=== PATIENT | female | born 1970 | race Caucasian/White ===

== ENCOUNTER 2020-11-04 16:26 | Outpatient (REF) | payer OTHER, SELFPAY ==
[2020-11-04 17:11] LABS: MANUAL DIFF FLAG NO
[2020-11-04 17:20] LABS: Basophils Absolute Auto 0.1 X10*3/uL (0.0-0.2); Basophils Percent Auto 0.7 % (0-2); Eosinophils Absolute Auto 0.3 X10*3/uL (0.0-0.4); Eosinophils Percent Auto 3.1 % (0-4); Hematocrit 42.8 % (37-47); Hemoglobin 14.1 g/dl (12.0-16.0); Imm Gran Abs Auto 0.02 X10*3/uL (0.00-0.03); Imm Gran Pct Auto 0.2 % (0.0-0.4); Lymphocytes Percent Auto 33.7 % (20-40); Mean Corpuscular HGB Conc 32.9 g/dl (31.0-35.0); Mean Corpuscular Hemoglobin 30.7 pg (27.0-33.0); Mean Platelet Volume 10.6 fL (9.4-12.3); Monocytes Absolute Auto 0.6 X10*3/uL (0.1-1.2); Monocytes Percent Auto 6.7 % (2-11); Neutrophils Absolute Auto 4.9 X10*3/uL (2.0-8.3); Neutrophils Percent Auto 55.6 % (45-73); Platelet Count 220 X10*3/uL (160-400); Red Cell Distribution Width 12.3 % (11.0-16.0); White Blood Count 8.8 X10*3/uL (4.8-10.8)
[2020-11-04 17:41] LABS: Glucose Urine UA NEG (NEG); Leukocyte Esterase Urine NEG (NEG); Nitrite Urine NEG (NEG); Urine Blood NEG (NEG); Urine Ketones NEG (NEG); Urine Protein NEG (NEG-TRACE)
[2020-11-04 17:42] LABS: Alanine Aminotransferase 17 U/L (0-31); Albumin Level 4.5 g/dL (3.5-5.0); Alkaline Phosphatase 58 U/L (39-117); Anion Gap 12 (12-20); Aspartate Amino Transferase 20 U/L (5-31); Bilirubin Total 0.4 mg/dL (0.0-1.0); Blood Urea Nitrogen 22 mg/dL (9-16); Calcium 9.2 mg/dL (8.4-10.2); Carbon Dioxide 30 mmol/L (22-29); Chloride 106 mmol/L (96-108); Estimated Glomerular Filt Rate 60; Glucose Random 94 mg/dL (60-115); Potassium 4.2 mmol/L (3.3-5.1); Sodium 144 mmol/L (135-145); Total Protein 7.4 g/dL (6.5-8.0)
[2020-11-04 17:45] LABS: Appearance Urine CLEAR; Color Urine YELLOW
[2020-11-04 18:04] LABS: TSH reflex Free T4 0.95 uIU/mL (0.32-4.0)
== END 2020-11-04 16:27 | disposition home or self-care (01) ==
LOC: HO.LAB 16:26
PROVIDERS: PCP Internal Medicine; Visit Provider Internal Medicine
DX: R00.2 Palpitations (principal); R30.0 Dysuria; M79.671 Pain in right foot; Z12.4 Encounter for screening for malignant neoplasm of cervix
CPT/HCPCS: 36415; 80053; 81003; 84443; 85025

== ENCOUNTER 2020-11-14 08:55 | Outpatient (REF) | payer OTHER, SELFPAY ==
[2020-11-15 00:20] LABS: CT PCR NOT DETECTED (Not Detect.); NG PCR NOT DETECTED (Not Detect.)
[2020-11-15 09:07] LABS: BV Int Neg Control Negative (Negative); BV Int Pos Control Positive (Positive)
[2020-11-18 00:36] LABS: HPV mRNA E6/E7 rflx Not Detected (Not Detected)
== END 2020-11-14 08:56 | disposition home or self-care (01) ==
LOC: HO.LAB 08:55
PROVIDERS: PCP Internal Medicine; Visit Provider Obstetrics & Gynecology
DX: Z01.419 Encounter for gynecological examination (general) (routine) without abnormal findings (principal); Z11.3 Encounter for screening for infections with a predominantly sexual mode of transmission; Z11.51 Encounter for screening for human papillomavirus (HPV); N76.0 Acute vaginitis
CPT/HCPCS: 36415; 87480; 87491; 87510; 87591; 87624; 87660; 88142

== ENCOUNTER → 2020-11-22 09:06 | Outpatient (BNVA) | payer OTHER, SELFPAY | PROVIDERS: PCP Internal Medicine; Visit Provider Internal Medicine | DX: R00.2 Palpitations (principal); I34.1 Nonrheumatic mitral (valve) prolapse | CPT/HCPCS: 93005; 99202 ==

== ENCOUNTER → 2020-12-16 13:06 | Outpatient (REF) | payer OTHER, SELFPAY ==
--- NOTE | 2020-12-16 13:10 | CA_ITS ---
Transthoracic Echocardiogram Patient (Last, First, Middle): Toma Street, Gender: Female Date of : 1970 Age: 50 Procedure Date: 12/16/2020 Procedure Type: Transthoracic Echocardiogram Location: OP Height: 154.94 cm Weight: 65.77 kg BSA: 1.65 m2 Heart Rate: bpm BP: 110 / 60 mmHg First Aid Attendant: TRUDI Hernandez MD: Scotty Queen MD Symptoms: R00.2 - Palpitations Study Quality: Good Conclusions: - Normal biventricular function. No significant valvular or pericardial pathology noted. Normal PA pressures. Findings Left Ventricle Normal left ventricular size, thickness, systolic function, and wall motion. The visually estimated ejection fraction is between 55-60%. Diastolic function is normal for age. Right Ventricle Normal right ventricular cavity size and systolic function. Atria Both atria are normal in size. There is no evidence of interatrial shunt by color Doppler. Aortic Valve Normal aortic valve structure and function. There is no aortic valve stenosis. There is no aortic valve regurgitation. Mitral Valve Normal mitral valve structure and function. There is no mitral valve regurgitation. There is no mitral valve stenosis. Pulmonic Valve Normal pulmonic valve structure and function. There is trace pulmonic valve regurgitation. Tricuspid Valve Normal tricuspid valve structure and function. There is trace tricuspid valve regurgitation. Normal right atrial pressure. There is no evidence of pulmonary hypertension. Great Vessels All visible segments of the aorta are normal in size. The visualized portions of the pulmonary artery and branches are normal. Venous The inferior vena cava is normal in size and collapses greater than 50% with inspiration. Pericardium/Pleural There is no evidence of pericardial effusion. Prior Study Comparison No prior study available for comparison. Measurements 2D Linear Measurements IVSd: 0.71 0.6-0.9/0.6-1.0 cm LVIDd: 3.92 3.9-5.3/4.2-5.9 cm LVIDd Index: 2.38 2.4-3.2/2.2-3.1 cm/m2 LVIDs: 2.48 2.0-3.6 cm LVPWd: 0.75 0.7-1.1 cm Ao Root: 2.50 2.1-3.5 cm LA Diam: 2.90 2.7-3.8/3.0-4.0 cm LAIDs Index: 1.76 1.5-2.3 cm/m2 LV Mass: 99.30 67-162/88-224 g LV Mass Index: 60.18 43-95/49-115 g/m2 LVOT Diam: 1.90 3.0+(-)1.3 cm 2D Systolic Function EF 4C: 56.30 >55% EF 2C: 51.10 >55% EF BiP: 55.10 >55% Mitral Valve MV Pk E: 0.90 MV PK A: 0.70 MV Decel Time: 285.00 E/A: 1.30 E'Lateral: 18.40 E'Medial: 13.20 E/E' Med: 6.80 E/E' Lat: 4.90 PHT: 84.00 MVA PHT: 2.62 Decel Mclean: 3.16 Aortic Valve AoV Pk Ronny: 1.64 AoV Mn Ronny: 1.09 AoV VTI: 0.31 AoV Pk Grad: 11.00 Aov Mn Grad: 5.00 BILLIE Cont.VTI: 1.96 LVOT LVOT Pk Ronny: 1.07 LVOT Mn Ronny: 0.68 LVOT VTI: 0.21 LVOT Pk Grad: 5.00 LVOT Mn Grad: 2.00 LVOT Diam: 1.90 LVOT Area: 2.84 Diastolic Function MV Pk E: 0.90 MV Pk A: 0.70 E/A: 1.30 E'Medial: 13.20 E/E' Med: 6.80 E' Laterial: 18.40 E/E' Lat: 4.90 Tricuspid Valve TR Pk Ronny: 2.02 TR Pk Grad: 16.00 RA Press: 3.00 RVSP: 19.00 Great Vessels Aorta Ao Root-2D: 2.50 2.0-3.7 cm Ao Asc: 2.50 2.1-3.4 cm Ao Arch: 2.50 Updated in Other Vendor System with Status of Final Papa Ayala MD electronically signed on 12/19/2020 10:19:09 AM with status of Final
--- NOTE | 2020-12-16 13:20 | ECG_ITS ---
Hook-up date: 2020-12-16 13:57:00 Duration: 47:59:00 Test Indications: PALPITATIONS Medications: [id number] QRS complexes * Ventricular ectopics which represent % of total QRS comp. 57 Supraventricular ectopics which represent <1 % of total QRS comp. * Paced QRS complexs which represent % of total QRS comp. VENTRICULAR ECTOPY * Isolated * Bigeminal Cycles * Couplets * Runs * Beats in Runs * Beats LONGEST at * BPM at :: -- * Beats FASTEST at * BPM at :: -- SUPRAVENTRICULAR ECTOPY 53 Isolated 2 Couplets 0 Runs 0 Beats in Runs * Beats LONGEST at * BPM at :: -- * Beats FASTEST at * BPM at :: -- HEART RATES 53 MIN at 03:05:43 2020-12-17 90 AVG 158 MAX at 16:15:13 2020-12-16 LONGEST RR 1.1600 secs at 06:35:53 2020-12-17 S-T LEVELS Channel 1 - 128 mm at 13:57:00 2020-12-16 - 128 mm at 13:57:00 2020-12-16 Channel 2 - 128 mm at 13:57:00 2020-12-16 - 128 mm at 13:57:00 2020-12-16 Channel 3 - 128 mm at 03:31:61 -- - 128 mm at 03:31:61 Underlying rhythm is sinus; Average ventricular rate 90/min; about 44% of the time, rate>100/min, with maximum rate of 158/min; Rare PACs; Patient did not report any symptoms in the diary Referred By: Scotty Queen Overread By: DEBRA COHEN
== END ==
LOC: HO.CARD 13:06
PROVIDERS: Visit Provider Internal Medicine
DX: R00.2 Palpitations (principal)
CPT/HCPCS: 93225; 93226; 93306

== ENCOUNTER 2022-04-13 22:20 | Emergency (ER) | payer OTHER, SELFPAY ==
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
[2022-04-13 22:29] VITALS: BP 140/74; PULSE 67; O2SAT 100; BMI 27.3
[2022-04-14 01:30] VITALS: BP 130/76; PULSE 74; RESP 16; TEMP 37.1; O2SAT 98
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
[2022-04-14 04:00] VITALS: BP 109/70; PULSE 74; RESP 16; TEMP 36.6; O2SAT 98
[2022-04-14] MEDS: Ibuprofen 600 MG TABLET PO (04:44)
--- NOTE | 2022-04-14 04:52 | PC.NURSE ---
pt a&o, no sob or chest pain. pt denies any loss of vision, pt able to ambulate with a steady gait. Reviewed discharge instructions with pt. pt verbalized understandng.
== END 2022-04-14 04:54 | disposition home or self-care (01) ==
PROVIDERS: Emergency Provider Internal Medicine
DX: S00.11XA Contusion of right eyelid and periocular area, initial encounter (principal); Y04.2XXA Assault by strike against or bumped into by another person, initial encounter; M25.512 Pain in left shoulder; Y93.9 Activity, unspecified; Y92.9 Unspecified place or not applicable; Y99.9 Unspecified external cause status
CPT/HCPCS: 70450; 70486; 99284

== ENCOUNTER 2022-09-04 12:28 | Outpatient (REF) | payer OTHER, SELFPAY ==
[2022-09-04 13:16] LABS: COVID-19 Test Negative (Negative); IDNOW Serial# 6674DD1D
== END 2022-09-04 12:29 | disposition home or self-care (01) ==
LOC: HO.LAB 12:28
PROVIDERS: Visit Provider Internal Medicine
DX: Z20.822 Contact with and (suspected) exposure to COVID-19 (principal)
CPT/HCPCS: 87635; C9803

== ENCOUNTER → 2022-09-24 11:00 | Outpatient (BNVA) | payer OTHER, SELFPAY | PROVIDERS: Visit Provider Obstetrics & Gynecology | DX: Z13.89 Encounter for screening for other disorder (principal) ==

== ENCOUNTER 2022-10-11 10:51 | Outpatient (REF) | payer OTHER, SELFPAY ==
--- NOTE | ~2022-10-11 | MM_ITS ---
EXAMINATION: MM SCREENING DIGITAL BREAST TOMOSYNTHESIS, BILATERAL CLINICAL INFORMATION: Screening. Asymptomatic. Age 52. Prior outside mammograms years ago at unknown facility. No known family history of breast cancer. The lifetime risk of breast cancer based on the Tyrer-Cuzick Model is 7%. COMPARISON: None (current study represents new baseline exam). TECHNIQUE: Digital breast tomosynthesis is performed in both the craniocaudal and mediolateral oblique views along with computer-aided detection (CAD). Synthesized 2D images are generated from the tomosynthesis. FINDINGS: There are scattered areas of fibroglandular density (ACR BI-RADS breast composition Category b). There are no significant masses, abnormal calcifications, or other abnormalities. No architectural abnormality. The axilla and skin contours are unremarkable. MM/MM tomosynthesis screening BI IMPRESSION: No mammographic evidence of malignancy. ASSESSMENT: BI-RADS 1: Negative RECOMMENDATION: Routine annual mammography screening. This patient's information was entered into a reminder system with a target due date for their next mammogram.
== END 2022-10-11 10:52 | disposition home or self-care (01) ==
LOC: HO.MAMMO 10:51
PROVIDERS: Visit Provider Obstetrics & Gynecology
DX: Z12.31 Encounter for screening mammogram for malignant neoplasm of breast (principal)
CPT/HCPCS: 77063; 77067

== ENCOUNTER → 2022-11-27 10:40 | Outpatient (BNVA) | payer OTHER, SELFPAY | PROVIDERS: Visit Provider Internal Medicine | DX: Z12.11 Encounter for screening for malignant neoplasm of colon (principal) | CPT/HCPCS: 99202 ==

== ENCOUNTER 2023-05-29 14:54 | Outpatient (AMB) | payer OTHER, SELFPAY ==
--- NOTE | 2023-05-29 14:59 | MHC.OFFVIS ---
Intake Vital Signs 05/29/23 15:16 Height 5 ft 1 in Weight 144 lb 4 oz BMI 27.3 BP 102/62 Blood Pressure Location Rt brachial Position Sitting Intake Visit Reasons: Vaginal Discharge Allergies Penicillins [PENICILLINS] Allergy (Mild, Verified 05/29/23 15:16) rash Medication List - Last Reconciled 05/29/23 by Nanette Wright CNM mecobalamin (vitamin B12) (B12 Active) 1,000 mcg PO DAILY peg 3350-electrolytes 236-22.74-6.74 -5.86 gram (Golytely) 240 mL PO Q10M HPI Vaginal Discharge HPI Details Patient is here because she has had an discharge that is got an unusual odor for her it is not fishy but it is not normal for her. She also reports though that was not the focus of the visit that sometimes she feels she has to urinate but then she does not fully empty and still has to go. She does Kegel exercises. She is sexually active and is open to STI testing. She had her annual exam last August and her Pap was normal in 2020 and she had a mammogram last September. She is going to be rescheduling her colonoscopy because she can not do the date that was scheduled for. [facility] Medical History (Updated 05/29/23 @ 15:57 by Nanette Wright CNM) Overweight (BMI 25.0-29.9) Right foot pain Cervical cancer screening Amenorrhea Dysuria Palpitations Surgical History Hx of tubal ligation S/P foot surgery, right Family History Father HTN (hypertension) Diabetes Mother HTN (hypertension) Diabetes Social History Alcohol intake: current Alcohol intake frequency: holidays/special occasions only Patient Tobacco Use Status: Never used Tobacco Female Reproductive History Menstrual Age of Menarche: 12 Physical Exam Vital Signs: Last Vital Signs BP 102/62 05/29/23 15:16 BMI result Body Mass Index 27.3 Other: Cervix is somewhat patulous firm there is a creamy slightly bubbly discharge. Patient states that she had a cerclage but she went into pre term labor at 8 months anyway and her cervix got ripped because of the pre term labor with the cerclage and she also had a with her 1st child. External Female Exam: normal external appearance Speculum Exam - Vagina: normal appearance of the vagina and normal vaginal discharge Speculum Exam - Cervix: normal appearance of the cervix Bimanual exam- vagina & uterus: normal bimanual exam, uterine size normal, consistency normal, uterine mobility normal, uterine shape normal and non-tender Bimanual Exam- Adnexa, other: normal adnexae, no masses and No adnexal tenderness Results Reviewed Results Reviewed: Name: Toma Street Age/Sex: 50/F Attending: Jesus Quiroz MD : 1970 Submitted by: Jesus Quiroz MD Copies to: Scotty Queen MD MR #: [id number] Status: DEP REF Collected: 11/14/20 Location: .LAB Received: 11/16/20 Interpretation Satisfactory for evaluation. Negative for intraepithelial lesion or malignancy. HPV mRNA E6/E7: NOT DETECTED This assay detects E6/E7 viral messenger RNA (mRNA) from 14 high-risk HPV types (16, 18, 31, 33, 35, 39, 45, 51, 52, 56, 58, 59, 66, 68) HPV testing performed by [facility], [place], [place]. See reference laboratory portion of the EMR for entire report. Clinical Information LMP: Unknown Date Previous PAP test: Unknown Date/Findings Material Received ThinPrep Cervical Copies To Scotty Queen MD [address] [facility] [address] [place] [address] Jesus Quiroz MD [address] [place] [address] [address] Electronically Signed By: Yajaira Kothariey 11/21/20 1401 The Pap Test is a screening procedure with the inherent possibility of both false negative and false positive results. Results should be interpreted in the context of historic and current clinical findings. Reliability of the Pap Test is enhanced by performing the test on a regular repetitive basis. Patient: Toma Street Ag [facility] [address] [place] [address] [place] [address] Mammography Report Signed Patient: Toma Street MR#: [id number] : 1970 Acct:[id number] Age/Sex: 52 / F ADM Date: 10/11/22 Loc: HO.MAMMO Attending Dr: Jesus Quiroz MD Ordering Physician: Jesus Quiroz MD Results: 1Negative Date of Service: 10/11/22 Follow Up: 1 Year From Original Mammogram Procedure(s): MM tomosynthesis screening BI Accession Number(s): [id number] cc: Jesus Quiroz MD~ EXAMINATION: MM SCREENING DIGITAL BREAST TOMOSYNTHESIS, BILATERAL CLINICAL INFORMATION: Screening. Asymptomatic. Age 52. Prior outside mammograms years ago at unknown facility. No known family history of breast cancer. The lifetime risk of breast cancer based on the Tyrer-Cuzick Model is 7%. COMPARISON: None (current study represents new baseline exam). TECHNIQUE: Digital breast tomosynthesis is performed in both the craniocaudal and mediolateral oblique views along with computer-aided detection (CAD). Synthesized 2D images are generated from the tomosynthesis. FINDINGS: There are scattered areas of fibroglandular density (ACR BI-RADS breast composition Category b). There are no significant masses, abnormal calcifications, or other abnormalities. No architectural abnormality. The axilla and skin contours are unremarkable. MM/MM tomosynthesis screening BI IMPRESSION: No mammographic evidence of malignancy. ASSESSMENT: BI-RADS 1: Negative RECOMMENDATION: Routine annual mammography screening. This patient's information was entered into a reminder system with a target due date for their next mammogram. Dictated By: Kwesi Milligan MD Signed By: <Electronically signed by Kwesi Milligan MD in OV> 10/12/22 1443 DD/ 1120 TD/TT: Director Of Online Merchandising: LINDA Assessment & Plan Assessment & Plan (1) Problematic vaginal discharge: Code(s): N89.8 - Other specified noninflammatory disorders of vagina Plan Testing was done for gonorrhea chlamydia trichomoniasis Gardnerella and Cierra it does not appear to be Cierra will wait to see if anything else shows positive she may call tomorrow towards the end of the day if she is very curious otherwise by the next day. She is not sure if she was on the portal still as she was here and then moved away and now is back. 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 I reviewed Kegel's with her and challenge of incomplete emptying she has very very good tone with her Kegel exercise. She will be rescheduling her colonoscopy to a date that is better for her. Otherwise we will see her p.r.n. or for her annual. I offered STI blood work and I am ordering it that she can get done at her convenience. Orders: Orders Bacterial Vaginosis Panel Today Z01.419 - Encounter for gynecological examination (general) (routine) without abnormal findings HIV Ab/Ag Today N89.8 - Other specified noninflammatory disorders of vagina CT NG by PCR Today Z01.419 - Encounter for gynecological examination (general) (routine) without abnormal findings Hepatitis B Surface Antigen Today N89.8 - Other specified noninflammatory disorders of vagina Hepatitis C Antibody Today N89.8 - Other specified noninflammatory disorders of vagina Syphilis Screen Today N89.8 - Other specified noninflammatory disorders of vagina Coding Level of Care Code Est Pt Level 3 (24955) Diagnoses Problematic vaginal discharge N89.8
[2023-05-29 15:16] VITALS: BP 102/62; BMI 27.3
== END 2023-05-29 15:56 | disposition home or self-care (01) ==
PROVIDERS: Visit Provider Advanced Practice Midwife
DX: N89.8 Other specified noninflammatory disorders of vagina (principal)
CPT/HCPCS: 99213

== ENCOUNTER 2023-05-29 14:54 | Outpatient (REF) | payer OTHER, SELFPAY | END 2023-05-29 14:55 | disposition home or self-care (01) | LOC: HO.LNP 14:54 | PROVIDERS: Visit Provider Advanced Practice Midwife | DX: N89.8 Other specified noninflammatory disorders of vagina (principal) | CPT/HCPCS: 99212 ==

== ENCOUNTER 2023-05-29 16:01 | Outpatient (REF) | payer OTHER, SELFPAY ==
[2023-05-30 03:20] LABS: CT PCR NOT DETECTED (Not Detect.); NG PCR NOT DETECTED (Not Detect.)
[2023-05-30 08:35] LABS: Syphilis Screen Nonreactive (Nonreactive)
[2023-05-30 08:37] LABS: HBsAGNum1 0.31 S/CO (0.00-0.99); HIV AB/AG Nonreactive (Nonreactive); HIV Num 1 0.05 S/CO (0.00-0.99); Hepatitis B Surface Antigen Negative (Negative); ~HepC Num1 0.08 S/CO (0.00-0.79); ~Hepatitis C Antibody Nonreactive (Nonreactive)
== END 2023-05-29 16:02 | disposition home or self-care (01) ==
LOC: HO.LAB 16:01
PROVIDERS: Visit Provider Advanced Practice Midwife
DX: Z01.419 Encounter for gynecological examination (general) (routine) without abnormal findings (principal); N89.8 Other specified noninflammatory disorders of vagina
CPT/HCPCS: 0353U; 86780; 86803; 87340; 87389; 87480; 87510; 87660

== ENCOUNTER 2023-08-31 09:34 | Emergency (ER) | payer MEDICAID, SELFPAY ==
[2023-08-31 09:47] VITALS: BP 116/74; PULSE 107; RESP 18; TEMP 38.6; O2SAT 98; BMI 28.6
--- NOTE | 2023-08-31 10:40 | ED.GENADULT ---
HPI - General Adult General Chief complaint: Fever Stated complaint: fever Time Seen by Provider: 08/31/23 10:39 Source: patient Mode of arrival: ambulatory Limitations: no limitations History of Present Illness HPI narrative: Patient is a 53 year old assigned female at with no reported medical history presenting to the emergency department today with a cough. Patient states that over the last 3 days she has had a cough and body aches. Patient denies any dizziness, lightheadedness, abdominal pain, nausea, vomiting, fever, chills, blurry vision, double vision, loss of vision, chest pain, difficulty breathing, shortness of breath, back pain, night sweats, pain with urination, increased urinary frequency, increased urinary urgency, blood in her urine or stool, syncope or a near syncopal episode, recent trauma or falls, bowel incontinence, bladder incontinence, bowel retention, bladder retention, or any other complaints at this time. Onset (ago): day(s) (3) Severity: mild Severity scale (1-10): 2 Relieving factors: none Exacerbating factors: none Associated symptoms: cough Treatments prior to arrival: none Related Data Home Medications Medication Instructions Recorded Confirmed mecobalamin (vitamin B12) 1,000 1,000 mcg PO DAILY 11/27/22 05/29/23 mcg chewable tablet (B12 Active) Previous Rx's Medication Instructions Recorded peg 3350-electrolytes 236 240 ml PO Q10M colonoscopy #4,000 11/27/22 gram-22.74 gram-6.74 gram-5.86 mL gram solution (Golytely) metronidazole 0.75 % (37.5 mg/5 1 appful vaginal BEDTIME 5 days 05/31/23 gram) vaginal gel #70 grams albuterol sulfate 90 mcg/actuation 1 inh inhalation QID PRN 08/31/23 aerosol inhaler bronchospasm #8.5 grams benzonatate 100 mg capsule 100 mg PO BID PRN cough 7 days #14 08/31/23 caps Allergies Allergy/AdvReac Type Severity Reaction Status Date / Time Penicillins [PENICILLINS] Allergy Mild rash Verified 08/31/23 09:47 Review of Systems Constitutional: Constitutional: Reports no additional constitutional complaints, Reports body ache(s), Denies chills, Denies fever(s) and Denies night sweats Eyes: Eyes: Reports no additional eye complaints, Denies blurry vision, Denies change in vision, Denies diplopia, Denies eye discharge, Denies loss of vision and Denies eye pain ENT: Denies dizziness Cardiovascular: Cardiovascular: Reports no additional cardiovascular complaints, Denies chest pain, Denies lightheadedness, Denies Loss of Consciousness and Denies dyspnea Respiratory: Respiratory: Reports no additional respiratory complaints, Reports cough and Denies dyspnea Gastrointestinal: Gastrointestinal: Reports no additional gastrointestinal complaints, Denies abdominal pain, Denies melena, Denies hematochezia, Denies change in bowel habits and Denies change in stool character Genitourinary: Genitourinary: Denies hematuria, Denies urinary frequency, Denies dysuria, Denies urinary incontinence, Denies urinary hesitancy and Denies urinary urgency Musculoskeletal: Musculoskeletal: Reports no additional musculoskeletal complaints, Denies numbness and Denies tingling Neurologic: Denies dizziness, Denies loss of vision, Denies numbness and Denies tingling Psychiatric: Psychiatric: Reports no additional psychiatric complaints Endocrine: Endocrine: Reports no additional endocrine complaints Hematologic/Lymphatic: Hematologic/Lymphatic: Reports no additional hematologic/lymphatic complaints Allergic/Immunologic: Allergic/Immunologic: Reports no additional allergic/immunologic complaints PMF Past Medical History Attestation statement: The following information was validated with the patient. Source: old records reviewed and nursing notes reviewed Onset Date is defined in the Problem List Problems that require an onset date and time if occurred within 24 hrs of arrival to the ED Aortic Dissection and Rupture; Neurologic impairment; Cardiopulmonary Arrest; Endotracheal Intubation; Insertion or Replacement of Mechanical Circulatory Assist Device Medical History Problematic vaginal discharge Colon cancer screening Vulvovaginitis Well woman exam Overweight (BMI 25.0-29.9) Right foot pain Cervical cancer screening Amenorrhea Dysuria Palpitations Surgical History Hx of tubal ligation S/P foot surgery, right Family History Family History Father HTN (hypertension) Diabetes Mother HTN (hypertension) Diabetes Social History Social History Alcohol intake: current Alcohol intake frequency: holidays/special occasions only Patient Tobacco Use Status: Never used Tobacco Advance Directives: No Advance Directives Information Provided: Yes Physical Exam ED Vital Signs: Vital Signs - 24 hr 08/31/23 09:47 08/31/23 10:49 Temperature 101.5 F H 100.5 F H Pulse Rate 107 H 84 Respiratory Rate 18 16 Blood Pressure 116/74 106/61 Pulse Oximetry 98 95 Oxygen Delivery Method Room Air Room Air BMI result Body Mass Index 28.6 Const General: cooperative, no acute distress, alert and awake Nutritional Appearance: well nourished Orientation/consciousness: patient oriented x3 Limitations: no limitations HENMT Head: Yes normal to inspection and Yes atraumatic Ears: hearing grossly normal bilaterally and external ears normal General nose exam: Normal external nose present, no nasal discharge noted and no epistaxis Face and sinus: Yes normal facial exam, No abrasion and No laceration Mouth: Normal oral and palatal mucosa present, no drooling and no muffled voice Eyes General: appearance normal, both eyes and all related structures Periorbital: periorbital findings normal Eyelids: Yes eyelids normal Conjunctivae: conjunctivae normal Pupils: Equal, round and reactive pupils present EOM: EOMs intact bilaterally Neck Neck: Yes normal visual inspection, Yes full ROM and Yes no lymphadenopathy Chest Chest palpation & inspection: normal inspection of the chest Resp Effort & Inspection: normal respiratory effort and able to speak in complete sentences GI Inspection: Yes normal to inspection Neuro General: patient oriented x3 and moves all extremities Cranial nerves: Yes Equal, round and reactive pupils present Cognition (Neuro): normal cognition Motor exam (neuro): 5/5 motor strength present throughout Sensory Exam: Normal double simultaneous stimulation for sensation Coordination: [id number] test normal Extrem General: Yes normal to inspection, Yes full ROM and Yes capillary refill normal Psych Appearance: grossly normal Mental Status: mental status grossly normal Affect: normal affect Attitude: cooperative Thought process: Normal thought process present Thought content: Normal thought content present Insight: Good insight present (Psych) Medications Administered Discontinued Medications Generic Name Dose Route Start Last Admin Trade Name Freq PRN Reason Stop Dose Admin Acetaminophen 650 mg 08/31/23 09:50 08/31/23 09:52 Acetaminophen 325 Mg Tablet PO 08/31/23 09:51 650 mg ONCE ONE Administration Medical Decision Making Medical Decision Making MDM Narrative: Patient is a 53 year old assigned female at with no reported medical history presenting to the emergency department today with a cough and body aches. Patient's physical exam was unremarkable. Patient's RSV and COVID-19 tests were negative. Patient's influenza test was positive. I explained my physical exam findings as well as all test results to the patient. I answered all questions asked by the patient. I stressed the importance of the patient taking her medication as prescribed. I stressed the importance of the patient following up with her primary care provider. I stressed the importance of the patient returning to the emergency department immediately if her symptoms were to worsen or if she were to develop any dizziness, shortness of breath, difficulty breathing, chest pain, blurry vision, loss of vision, nausea, vomiting, abdominal pain, fever, chills, back pain, or any other complaints. Patient verbalized agreement and understanding with this treatment plan and discharge. Differential Diagnosis Differential Diagnoses: The differential diagnosis associated with the presentation includes Influenza RSV COVID-19 URI Admission/Observation Consideration of admission/observation: Escalation of care including admission/observation considered Patient would have been admitted to the hospital had her work up had any findings where hospital admission was appropriate and her clinical presentation warranted hospital admission. Lab Data [facility] Lab Attestation statement: I reviewed the patient's lab results. My interpretation of these results are in the [facility] Rationale portion of this note. Labs: Lab Results 08/31/23 Range/Units 10:10 Influenza Type A (PCR) POSITIVE A (Negative) Influenza Type B (PCR) NEGATIVE (Negative) RSV RNA Qual (PCR) NEGATIVE (Negative) SARS-CoV-2 RNA (RT-PCR) NEGATIVE (Negative) Prescription Management I considered prescription management with: Antiviral (tamiflu considered however, patient is out of the recommended window.) Discharge Plan Discharge Clinical Impression: Influenza Patient Disposition: Home, Self-Care Instructions: Influenza (DC) Additional Instructions: Follow up with your primary care provider. Return to the emergency department immediately if your symptoms worsen or if you develop any dizziness, shortness of breath, difficulty breathing, chest pain, blurry vision, loss of vision, nausea, vomiting, abdominal pain, fever, chills, back pain, or any other complaints. Prescriptions: New benzonatate 100 mg capsule 100 mg PO BID PRN (Reason: cough) 7 Days Qty: 14 0RF albuterol sulfate 90 mcg/actuation HFA aerosol inhaler 1 inh inhalation QID PRN (Reason: bronchospasm) Qty: 8.5 0RF No Action metronidazole 0.75 % (37.5mg/5 gram) gel 1 appful vaginal BEDTIME 5 Days Qty: 70 0RF mecobalamin (vitamin B12) [B12 Active] 1,000 mcg tablet,chewable 1,000 mcg PO DAILY peg 3350-electrolytes [Golytely] 236-22.74-6.74 -5.86 gram recon soln 240 ml PO Q10M Qty: 4000 0RF Rx Instructions: as per split prep instructions, until fecal effluent is clear Referrals: [facility] Family Medicine [Provider Group] (Call to establish and follow up with a primary care provider. If you already have a primary care provider, please follow up with them.) [facility] Primary Care, Sophia [Provider Group] (Call to establish and follow up with a primary care provider. If you already have a primary care provider, please follow up with them.) [facility] Primary Care,Jamarcus [Provider Group] (Call to establish and follow up with a primary care provider. If you already have a primary care provider, please follow up with them.) Print Language: German
[2023-08-31 10:49] VITALS: BP 106/61; PULSE 84; RESP 16; TEMP 38.1; O2SAT 95
== END 2023-08-31 11:37 | disposition home or self-care (01) ==
PROVIDERS: Emergency Provider Student in an Organized Health Care Education/Training Program
DX: J10.1 Influenza due to other identified influenza virus with other respiratory manifestations (principal); R50.9 Fever, unspecified; Z11.52 Encounter for screening for COVID-19
CPT/HCPCS: 0241U; 99283; 99284

== ENCOUNTER 2024-09-16 13:37 | Emergency (ER) | payer OTHER, SELFPAY ==
[2024-09-16 13:48] VITALS: BP 133/90; PULSE 110; RESP 18; TEMP 37.8; O2SAT 98; BMI 29.5
--- NOTE | 2024-09-16 13:51 | ED_ITS ---
HPI - General Adult General Chief complaint: General Medical Stated complaint: Flu Symptoms Time Seen by Provider: 09/16/24 15:40 Source: patient, RN notes reviewed and old records reviewed Mode of arrival: ambulatory Limitations: no limitations History of Present Illness ED Provider: Sharron KAMINSKI narrative: Patient is a 54-year-old female presenting with 4 days of body aches, diarrhea, subjective fevers. Denies chest pain, dyspnea, palpitations. Denies abdominal pain, vomiting, hematochezia, melena. MD complaint: body aches, fever Onset (ago): day(s) Treatments prior to arrival: none Related Data Home Medications ?Medication ?Instructions ?Recorded ?Confirmed mecobalamin (vitamin B12) 1,000 1,000 mcg PO DAILY 11/27/22 05/29/23 mcg chewable tablet (B12 Active) Previous Rx's ?Medication ?Instructions ?Recorded peg 3350-electrolytes 236 240 ml PO Q10M colonoscopy #4,000 11/27/22 gram-22.74 gram-6.74 gram-5.86 mL gram solution (Golytely) metronidazole 0.75 % (37.5 mg/5 1 appful vaginal BEDTIME 5 days 05/31/23 gram) vaginal gel #70 grams albuterol sulfate 90 mcg/actuation 1 inh inhalation QID PRN 08/31/23 aerosol inhaler bronchospasm #8.5 grams benzonatate 100 mg capsule 100 mg PO BID PRN cough 7 days #14 08/31/23 caps Allergies Allergy/AdvReac Type Severity Reaction Status Date / Time Penicillins [PENICILLINS] Allergy Mild rash Verified 09/16/24 13:49 Review of Systems 2 Review of Systems: As per HPI Yes all other systems are reviewed and are negative Constitutional: Constitutional: Reports as per HPI PMFSH Past Medical History Medical History Problematic vaginal discharge Colon cancer screening Vulvovaginitis Well woman exam Overweight (BMI 25.0-29.9) Right foot pain Cervical cancer screening Amenorrhea Dysuria Palpitations Surgical History Hx of tubal ligation S/P foot surgery, right Family History Family History Father HTN (hypertension) Diabetes Mother HTN (hypertension) Diabetes Social History Social History Alcohol intake: current Alcohol intake frequency: holidays/special occasions only Patient Tobacco Use Status: Never used Tobacco Do you have a plan to hurt others: No Plan Physical Exam ED Vital Signs: Vital Signs - 24 hr 09/16/24 13:48 Temperature 100.1 F Pulse Rate 110 H Respiratory Rate 18 Blood Pressure 133/90 H Pulse Oximetry 98 Oxygen Delivery Method Room Air BMI result Body Mass Index 29.5 Vital signs have been reviewed and appear to be correct. Blood pressure normal. Heart rate slightly tachycardic. Respiratory rate normal. Temperature normal. Oxygen saturation normal. Const General: cooperative, healthy appearing and no acute distress Orientation/consciousness: oriented to person, oriented to place, oriented to time and patient oriented x3 Limitations: no limitations HENMT Head: Yes normocephalic and Yes atraumatic Ears: external ears normal General nose exam: Normal external nose present Face and sinus: Yes face symmetric Mouth: oropharynx normal and moist mucous membranes Throat: Yes uvula midline Eyes Pupils: Equal, round and reactive pupils present Neck Neck: Yes normal visual inspection and Yes supple Resp Effort & Inspection: normal respiratory effort and able to speak in complete sentences Auscultation: clear to auscultation bilaterally Cardio Rate: regular rate Rhythm: regular rhythm Heart sounds: S1 normal heart sound present and S2 normal heart sound present GI Palpation (GI): Soft to palpation and nontender Auscultation: normoactive bowel sounds General: Yes no CVA tenderness Back/Spine/Pelvis Back: no CVA tenderness Skin General skin exam: elasticity normal and turgor normal Neuro General: oriented to person, oriented to place, oriented to time, patient oriented x3, moves all extremities, no focal motor deficits and CN's II-XI intact bilaterally Cranial nerves: Yes Equal, round and reactive pupils present Cognition (Neuro): normal cognition Extrem General: Yes full ROM, Yes no pedal edema and Yes no calf tenderness Psych Mental Status: mental status grossly normal Affect: normal affect Thought process: Normal thought process present Course Course Course Narrative: This is a rapid medical exam performed by Patrice Mcdermott NP: Additional HPI, ROS, PE not included below will be deferred to primary provider. Patient is a 54-year-old female presenting with 4 days of body aches, diarrhea, subjective fevers. Plan: labs, viral serology Medical Decision Making Medical Decision Making [facility] Narrative: Patient is a 54-year-old female presenting with 4 days of body aches, diarrhea, subjective fevers. On exam patient is awake, A+Ox3, VS WNL, afebrile, normal neurological exam without focal deficits, physical exam findings as above. Given reported symptoms and physical exam findings, initial differential includes but is not limited to viral illness, Covid, flu, RSV, electrolyte abnormality. Labs notable for no leukocytosis, slightly elevated transaminases likely due to viral illness. Viral serology positive for Covid. Patient updated on results and all questions answered. Advised Tylenol/ibuprofen/immodium as needed. Isolation precautions discussed. Follow up with PCP as needed. Return precautions discussed. Patient verbalized understanding of and agreement with plan. Differential Diagnosis Differential Diagnoses: The differential diagnosis associated with the presentation includes As per [facility] Lab Data [facility] Lab Attestation statement: I reviewed the patient's lab results. As per [facility] 09/16/24 14:30 09/16/24 14:30 Labs: Lab Results 09/16/24 Range/Units 14:30 WBC 7.9 (4.8-10.8) X10*3/uL RBC 4.36 (4.20-5.50) X10*6/uL Hgb 13.5 (12.0-16.0) g/dl Hct 38.8 (37.0-47.0) % MCV 89.0 (80.0-98.0) fL MCH 31.0 (27.0-33.0) pg MCHC 34.8 (31.0-35.0) g/dl RDW 12.1 (11.0-16.0) % Plt Count 158 L (160-400) X10*3/uL MPV 9.7 (9.4-12.3) fL Immature Gran % (Auto) 0.3 (0.0-0.4) % Neut % (Auto) 61.0 (45-73) % Lymph % (Auto) 23.9 (20-40) % [place] % (Auto) 13.7 H (2-11) % Eos % (Auto) 0.3 (0-4) % Baso % (Auto) 0.8 (0-2) % Lymph # (Auto) 1.9 (1.2-4.9) X10*3/uL [place] # (Auto) 1.1 (0.1-1.2) X10*3/uL Eos # (Auto) 0.0 (0.0-0.4) X10*3/uL Baso # (Auto) 0.1 (0.0-0.2) X10*3/uL Abs Immat Gran (auto) 0.02 (0.00-0.03) X10*3/uL Absolute Neuts (auto) 4.8 (2.0-8.3) x10*3/uL Absolute Nucleated RBC 0.000 (0.0-0.012) X10*3/uL Nucleated RBC % (auto) 0.0 (0.0-0.2) /100WBC Sodium 139 (135-145) mmol/L Potassium 3.7 (3.3-5.1) mmol/L Chloride 107 (96-108) mmol/L Carbon Dioxide 27 (22-29) mmol/L Anion Gap 9 L (12-20) BUN 11 (9-16) mg/dL Creatinine 0.71 (0.5-1.4) mg/dL Estim Creat Clear Calc 82.5 Estimated GFR > 60 Random Glucose 115 (60-115) mg/dL Calcium 9.3 (8.4-10.2) mg/dL Magnesium 1.9 (1.6-2.6) mg/dL Total Bilirubin 0.6 (0.0-1.0) mg/dL AST 32 H (5-31) U/L ALT 33 H (0-31) U/L Alkaline Phosphatase 62 (39-117) U/L Total Protein 7.4 (6.5-8.0) g/dL Albumin 4.1 (3.5-5.0) g/dL Influenza Type A (PCR) NEGATIVE (Negative) Influenza Type B (PCR) NEGATIVE (Negative) RSV RNA Qual (PCR) NEGATIVE (Negative) SARS-CoV-2 RNA (RT-PCR) POSITIVE A (Negative) External Record Review External record reviewed: Inpatient record, Office record and Outpatient record Discharge Plan Discharge Clinical Impression: COVID-19 Patient Disposition: Home, Self-Care Instructions: COVID-19 (Coronavirus Disease 2019) (ED) Additional Instructions: You were evaluated in the emergency department today for diarrhea, body aches, fever. Your COVID test was resulted as positive. You should continue to isolate at home for another 2 days. You should continue to wear mask for 5 days after that. Be sure to get plenty of rest, plenty of fluids. If needed you can take over the counter Immodium for diarrhea. You can take 650 mg of Tylenol or 600 mg ibuprofen every 6 hours as needed for fever or discomfort. Return to the emergency department with worsening shortness of breath, chest pain, fever that does not improve with Tylenol or ibuprofen, persistent vomiting, or any other concerning symptoms. You should follow-up with your primary care provider. Prescriptions: No Action metronidazole 0.75 % (37.5mg/5 gram) gel 1 appful vaginal BEDTIME 5 Days Qty: 70 0RF benzonatate 100 mg capsule 100 mg PO BID PRN (Reason: cough) 7 Days Qty: 14 0RF albuterol sulfate 90 mcg/actuation HFA aerosol inhaler 1 inh inhalation QID PRN (Reason: bronchospasm) Qty: 8.5 0RF mecobalamin (vitamin B12) [B12 Active] 1,000 mcg tablet,chewable 1,000 mcg PO DAILY peg 3350-electrolytes [Golytely] 236-22.74-6.74 -5.86 gram recon soln 240 ml PO Q10M Qty: 4000 0RF Rx Instructions: as per split prep instructions, until fecal effluent is clear Stand Alone Forms: Work/School Release Print Language: [place]
[2024-09-16 14:34] LABS: MANUAL DIFF FLAG NO
[2024-09-16 14:35] LABS: Basophils Absolute Auto 0.1 X10*3/uL (0.0-0.2); Basophils Percent Auto 0.8 % (0-2); Eosinophils Percent Auto 0.3 % (0-4); Hematocrit 38.8 % (37.0-47.0); Hemoglobin 13.5 g/dl (12.0-16.0); Imm Gran Abs Auto 0.02 X10*3/uL (0.00-0.03); Imm Gran Pct Auto 0.3 % (0.0-0.4); Lymphocytes Absolute Auto 1.9 X10*3/uL (1.2-4.9); Lymphocytes Percent Auto 23.9 % (20-40); Mean Corpuscular HGB Conc 34.8 g/dl (31.0-35.0); Mean Platelet Volume 9.7 fL (9.4-12.3); Monocytes Absolute Auto 1.1 X10*3/uL (0.1-1.2); Monocytes Percent Auto 13.7 % (2-11); Neutrophils Absolute Auto 4.8 x10*3/uL (2.0-8.3); Platelet Count 158 X10*3/uL (160-400); Red Blood Count 4.36 X10*6/uL (4.20-5.50); Red Cell Distribution Width 12.1 % (11.0-16.0); White Blood Count 7.9 X10*3/uL (4.8-10.8)
[2024-09-16 14:51] LABS: Alanine Aminotransferase 33 U/L (0-31); Albumin Level 4.1 g/dL (3.5-5.0); Alkaline Phosphatase 62 U/L (39-117); Anion Gap 9 (12-20); Aspartate Amino Transferase 32 U/L (5-31); Bilirubin Total 0.6 mg/dL (0.0-1.0); Blood Urea Nitrogen 11 mg/dL (9-16); Calcium 9.3 mg/dL (8.4-10.2); Carbon Dioxide 27 mmol/L (22-29); Chloride 107 mmol/L (96-108); Creatinine Clr Calc Pharmacy 82.5; Estimated Glomerular Filt Rate > 60; Glucose Random 115 mg/dL (60-115); Magnesium 1.9 mg/dL (1.6-2.6); Potassium 3.7 mmol/L (3.3-5.1); Sodium 139 mmol/L (135-145); Total Protein 7.4 g/dL (6.5-8.0)
[2024-09-16 15:18] LABS: Influenza A PCR NEGATIVE (Negative); Influenza B PCR NEGATIVE (Negative); Resp Syncy Virus RNA Qual PCR NEGATIVE (Negative); SARS COV2 PCR INHOUSE POSITIVE (Negative)
[2024-09-16 16:20] VITALS: BP 105/68; PULSE 94; RESP 16; TEMP 37.1; O2SAT 99
--- OUTSIDE RECORDS SUMMARY | 2024-09-16 18:18 | XMS_ITS | Clinical Summary ---
Author Organization [facility] Address [address] [place] [address] Phone Care Team Providers Care Door Patcher Name Role Phone Rodrigo Moran MD Primary Care Provider Allergies Active Allergy Reactions Criticality Noted Date Comments Other Runny nose 12/07/2022 Seasonal allergies Penicillins Rash 12/07/2022 Medications Medication Sig Dispensed Refills Start Date End Date Status cyclobenzaprine (FLEXERIL) 10 mg tablet Take 0.5-1 Tablets by mouth 2 times daily as needed for Muscle spasms. Medication may cause drowsiness, do not drive/operate machinery while taking 04/02/2024 Active oxyCODONE (ROXICODONE) 5 mg immediate release tablet Take one tablet every 6 hours as needed for pain 05/21/2024 Active Active Problems Problem Noted Date Diagnosed Date Mild aortic regurgitation 06/24/2023 Overview (06/25/2024): Last Assessment & Plan: She had mild focal thickening of aortic valve with mild aortic regurgitation. The mild systolic murmur is probably a flow murmur. She could have a repeat echocardiogram in 5 to 6 years based on her symptoms. Mitral valve prolapse 12/07/2022 Overview (06/25/2024): Last Assessment & Plan: She has no mitral valve prolapse. The mitral valve is grossly normal. Encounters Date Type Department Care Team Description 07/14/2024 8:45 AM EST Office Visit Orthopedic Surgery [facility] [address] [facility] [address] [place] [address] Sergio Leblanc, MARILUZ Pain in right foot (Primary Dx); Epidermal inclusion cyst 06/29/2024 Telephone Orthopedic Surgery - [place] [address] [facility] [address] [place] [phone] Sergio Leblanc DPM from Last 3 Months Immunizations Name Administration Dates Next Due Tdap Tetanus diptheria acell ular pertussis (Boostrix; Adacel) 7yo and older 04/10/2023 Surgical History Surgery Date Site/Laterality Comments FOOT SURGERY Right PROCEDURE: HISTORICAL FOOT SURGERY Medical History Medical History Date Comments Mitral valve prolapse DX:Mitral valve prolapse Kidney stones DX:Kidney stones Family History Medical History Relation Name Comments Diabetes Father Diabetes Mother Hypertension Mother Relation Name Status Comments Father Mother Social History Tobacco Use Types Packs/Day Years Used Date Smoking Tobacco: Never Smokeless Tobacco: Never Tobacco Cessation:Counseling Given: Not Answered Alcohol Use Standard Drinks/Week Comments Yes 0 (1 standard drink = 0.6 oz pur e alcohol) Sex and Gender Information Value Date Recorded Sex Assigned at Not on file Gender Identity Not on file Sexual Orientation Not on file Job Start Date Occupation Industry Not on file Not on file Not on file Obstetrics History Last Filed Vital Signs Vital Sign Reading Time Taken Comments Blood Pressure 113/67 04/02/2024 10:01 AM EDT Pulse 70 04/02/2024 10:01 AM EDT Temperature - - Respiratory Rate - - Oxygen Saturation - - Inhaled Oxygen Concentration - - Weight 68.9 kg (152 lb) 07/14/2024 8:45 AM EST Height 154.9 cm (5' 0.98 ) 07/14/2024 8:45 AM ES T Body Mass Index 28.74 07/14/2024 8:45 AM EST Plan of Treatment Health Maintenance Due Date Last Done Comments Breast Cancer Screening 1971 Hepatitis B Vaccines (1 of 3 - 19+ 3-dose series) 1990 Cervical Cancer Screening: P ap Smear 1992 Zoster Vaccines (1 of 2) 2021 Colorectal Cancer Screening: Colonoscopy 07/29/2022 HIV Screening 07/29/2022 Hepatitis C Screening 07/29/2022 Social Influencers of Health Screening 07/29/2022 COVID-19 Vaccine ( - 2023-2 5 season) 2024 Influenza Vaccine (#1) 2024 Depression Screening 11/04/2024 11/05/2023 Cholesterol Screening (Lipid Panel) 01/04/2028 01/03/2023 DTaP,Tdap,and Td Vaccines (2 - Td or Tdap) 04/10/2033 04/10/2023 HIB Vaccines Aged Out No longer eligi ble based on patient's age to complete this topic HPV Vaccines Aged Out No longer eligi ble based on patient's age to complete this topic Hepatitis A Vaccines Aged Out No long er eligible based on patient's age to complete this topic IPV Vaccines Aged Out No longer eligi ble based on patient's age to complete this topic MMR Vaccines Aged Out No longer eligi ble based on patient's age to complete this topic Meningococcal ACWY Vaccine Aged Out N o longer eligible based on patient's age to complete this topic Pneumococcal Vaccine: Pediat rics (0 to 5 Years) and At-Risk Patients (6 to 64 Years) Aged Out No longer eligi ble based on patient's age to complete this topic RSV Immunization Patients Un juve 20 months Aged Out No longer eligible b ased on patient's age to complete this topic Varicella Vaccines Aged Out No longer eligible based on patient's age to complete this topic Procedures Procedure Name Priority Date/Time Associated Diagnosis Comments ORTHO X-RAY FOOT (3 VIEWS) Routine 06/24/2024 10:10 AM EDT Other specified postprocedural states HM DEPRESSION SCREENING Routine 11/05/2023 LIPID PANEL Routine 01/03/2023 from Last 3 Months or Most Recently Relevant to Health Maintenance Results * ORTHO X-RAY FOOT (3 VIEWS) (06/24/2024 10:10 AM EDT) Anatomical Region Laterality Modality Radiographic Marcelina ging 06/24/2024 7:23 AM EDT Narrative 06/24/2024 8:38 PM EDT Right foot 3 views weightbearing: Correction is maintained in good rectus alignment. Normal postoperative healing. Procedure Note Sergio Leblanc DPM - 06/27/2024 Right foot 3 views weightbearing: Correction is maintained in good rectusalignment. Normal postoperative healing. Sergio Leblanc DPM IMG XR PROCEDURES * Depression Screening (11/05/2023) Depression Screening abstracted Historical Provider MD NENA LEMON E * Lipid panel (01/03/2023) LDL/HDL Ratio 2 0 - 4 Triglycerides 51 0 - 150 mg/dL Cholesterol 183 0 - 200 mg/dL HDL 75 40 mg/dL LDL Cholesterol 98 0 - 100 mg/dL Blood Venous blood specimen / Unknown Historical Provider LAB BLOOD ORDERAB LES from Last 3 Months or Most Recently Relevant to Health Maintenance Care Teams Door Patcher Relationship Specialty Start Date End Date Rodrigo Moran MD [address] [place] [address] PCP - General 09/17/22
== END 2024-09-16 16:21 | disposition home or self-care (01) ==
LOC: HO.ED 16:21
PROVIDERS: Registered Nurse Emergency; Emergency Provider Emergency Medicine
DX: U07.1 COVID-19 (principal); M79.10 Myalgia, unspecified site; R50.9 Fever, unspecified; Z79.899 Other long term (current) drug therapy
CPT/HCPCS: 0241U; 80053; 83735; 85025; 99282; 99283

== ENCOUNTER 2025-02-02 14:20 | Outpatient (REF) | payer OTHER, SELFPAY ==
[2025-02-02 17:15] LABS: Bacterial Vaginosis PCR NEGATIVE (Negative); Candida Group PCR NOT DETECTED (Not Detect); Candida glab krusei PCR NOT DETECTED (Not Detect); Trichomonas vaginalis PCR NOT DETECTED (Not Detect)
[2025-02-02 17:46] LABS: CT PCR NOT DETECTED (Not Detect.); NG PCR NOT DETECTED (Not Detect.)
[2025-02-03 08:10] LABS: HBsAGNum1 0.35 S/CO (0.00-0.99); HIV AB/AG Nonreactive (Nonreactive); HIV Num 1 0.06 S/CO (0.00-0.99); Hepatitis B Surface Antigen Negative (Negative); ~Hepatitis C Antibody Nonreactive (Nonreactive)
[2025-02-03 08:36] LABS: Syphilis Screen Nonreactive (Nonreactive)
[2025-02-08 11:51] LABS: HPV Genotype 16 Negative (Negative); HPV Genotype 18 Negative (Negative); HPV High Risk Negative (Negative)
== END 2025-02-02 14:21 | disposition home or self-care (01) ==
LOC: HO.LAB 14:20
PROVIDERS: PCP Internal Medicine; Visit Provider Obstetrics & Gynecology
DX: Z01.419 Encounter for gynecological examination (general) (routine) without abnormal findings (principal); Z11.51 Encounter for screening for human papillomavirus (HPV); Z20.2 Contact with and (suspected) exposure to infections with a predominantly sexual mode of transmission; Z11.3 Encounter for screening for infections with a predominantly sexual mode of transmission; Z11.4 Encounter for screening for human immunodeficiency virus [HIV]
CPT/HCPCS: 81515; 86780; 86803; 87340; 87389; 87491; 87591; 87626; 88175; 99396; 99459

== ENCOUNTER 2025-02-02 14:20 | Outpatient (AMB) | payer OTHER, SELFPAY ==
--- NOTE | 2025-02-02 14:22 | MHC.OFFVIS ---
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 Requesting STD screen Last Pap/HPV was negative in 11/13 Last Mammogram was BI-RADS 1 in 10/18 Last screening Colonoscopy was few weeks ago at outside facility, the recommendation was to repeat in 10 years according to the patient, no records available [facility] Medical History (Updated 02/02/25 @ 14:47 by Jesus Quiroz MD) Well woman exam Problematic vaginal discharge Colon cancer screening Vulvovaginitis Overweight (BMI 25.0-29.9) Right foot pain Cervical cancer screening Amenorrhea Dysuria Palpitations Surgical History Hx of tubal ligation S/P foot surgery, right Family History Father HTN (hypertension) Diabetes Mother HTN (hypertension) Diabetes Social History Household Members: None Housing: Apartment Alcohol intake: current Alcohol intake frequency: holidays/special occasions only Patient Tobacco Use Status: Never used Tobacco Current occupational status: employed 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[employer], 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 Sexually active: No Sexual orientation: Straight/Heterosexual Gender identity: Female Female Reproductive History Menstrual Age of Menarche: 12 control method: permanent sterilization Total pregnancies: 5 Full term: 5 Number of Living Children: 2 Date of last pap smear: 11/16/20 Date of Mammogram: 10/11/22 Review of Systems Const All systems reviewed & are unremarkable except as noted in HPI and below Card Reports as per HPI Resp Reports as per HPI GI Reports as per HPI and Reports no additional complaints Reports as per HPI Physical Exam Vital Signs: Last Vital Signs BP 108/72 02/02/25 14:26 BMI result Body Mass Index 29.3 Const General: cooperative, healthy appearing and comfortable Chest Chest palpation & inspection: normal inspection of the chest and normal palpation of entire chest wall Breast/axilla inspection: normal inspection of the breasts and normal inspection of the axillae Breast/axilla palpation: normal palpation of the breasts, normal palpation of the axillae and no axillary lymphadenopathy Resp Effort & Inspection: normal respiratory effort Auscultation: clear to auscultation bilaterally Percussion: percussion normal Cardio Palpation: normal PMI Rate: regular rate Rhythm: regular rhythm Heart sounds: no murmurs and no rubs Peripheral pulses: Peripheral pulses 2+ throughout GI Inspection: Yes normal to inspection Palpation (GI): Soft to palpation, nontender, no guarding, not rigid and No hepatosplenomegaly present Percussion: Yes normal to percussion Auscultation: normal bowel sounds Rectal Exam - Female: deferred General: Yes bladder normal to palpation External Female Exam: No lesion Speculum Exam - Vagina: normal appearance of the vagina, normal palpation, normal vaginal discharge and not erythematous Speculum Exam - Cervix: normal appearance of the cervix and normal palpation Bimanual exam- vagina & uterus: normal bimanual exam, normal palpation, uterine size normal, bladder normal to palpation, consistency normal and normal palpation Bimanual Exam- Adnexa, other: normal adnexae, no masses and no tenderness Assessment & Plan Assessment & Plan (1) Well woman exam: Code(s): Z01.419 - Encounter for gynecological examination (general) (routine) without abnormal findings Category: Medical Plan: Co testing done. Counseled the patient about the recommended dietary allowance of 1200 mg of Calcium & 600 IU of vitamin D. Mammogram ordered. The patient was instructed to perform monthly self-breast exams and schedule annual exam in a year. All questions answered and the patient verbalized understanding. (2) Screen for STD (sexually transmitted disease): Code(s): Z11.3 - Encounter for screening for infections with a predominantly sexual mode of transmission Category: Medical Plan: STD screening tests done includes: BV panel for trichomonas, GC/CT will send patient for serology std screening for HIV, RPR, Hep b s Ag, HepC Ab. Instructions given the patient to schedule a follow-up appointment for repeat serology screen in 6 months for possible false negatives. Orders: Orders Syphilis Screen Today Z20.2 - Contact with and (suspected) exposure to infections with a predominantly sexual mode of transmission MM tomosynthesis screening BI Today Z12.31 - Encounter for screening mammogram for malignant neoplasm of breast HIV Ab/Ag Today Z20.2 - Contact with and (suspected) exposure to infections with a predominantly sexual mode of transmission Hepatitis B Surface Antigen Today Z20.2 - Contact with and (suspected) exposure to infections with a predominantly sexual mode of transmission Hepatitis C Antibody Today Z20.2 - Contact with and (suspected) exposure to infections with a predominantly sexual mode of transmission Coding Level of Care Code Est Pt Prev Care 40-64y(94178) Diagnoses Well woman exam Z01.419 Screen for STD (sexually transmitted disease) Z11.3
[2025-02-02 14:26] VITALS: BP 108/72; BMI 29.3
--- OUTSIDE RECORDS SUMMARY | 2025-02-02 17:18 | XMS_ITS | Encounter Summary ---
Author Organization [facility] Address [address] [place] [address] Care Team Providers Care Tie Cutter Name Role Phone Rodrigo Moran MD Primary Care Provider [phone]- [phone] Reason for Referral * Imaging (Routine) - Pending Review Specialty Diagnoses / Procedures Referred By Tejinder rodriguez Referred To Contact Radiology Diagnoses Osteoarthritis of left knee, unspecified osteoarthritis type Chronic pain of left knee Procedures MR Knee wo Contrast Left MR Knee wo Contrast Left Rodrigo Moran MD [address] [place] [address] Phone: tel: fax: [address] [address] Phone: tel: Referral ID Status Reason Start Date Expiration Date V isits Requested Visits Authorized [id number] Pending Review 01/20/2025 01/20/2026 1 1 Reason for Visit * Imaging (Routine) - Pending Review Specialty Diagnoses / Procedures Referred By Conteder t Referred To Contact Radiology Diagnoses Osteoarthritis of left knee, unspecified osteoarthritis type Chronic pain of left knee Procedures MR Knee wo Contrast Left MR Knee wo Contrast Left Rodrigo Moran MD [address] [place] [address] Phone: tel: fax: [address] [phone] Phone: tel: Referral ID Status Reason Start Date Expiration Date V isits Requested Visits Authorized [id number] Pending Review 01/20/2025 01/20/2026 1 1 Encounter Details Date Type Department Care Team (Latest Contact Info) Description 01/30/2025 10:53 AM EDT - 01/30/2025 11:59 PM EDT Hospital Encounter [facility] [address] [place] [address] Osteoarthritis of left knee, unspecified osteoarthritis type; Chronic pain of left knee Discharge Disposition: Home or Self Care Social History Tobacco Use Types Packs/Day Years Used Date Smoking Tobacco: Never Smokeless Tobacco: Never Alcohol Use Standard Drinks/Week Comments Yes 0 (1 standard drink = 0.6 oz pur e alcohol) Comments Unknown Sex and Gender Information Value Date Recorded Sex Assigned at Not on file Legal Sex Female 2:18 AM EST Gender Identity Not on file Sexual Orientation Not on file documented as of this encounter Medications at Time of Discharge bisacodyL (DULCOLAX) 5 mg EC tablet Take 2 tablets by mouth right before beginning bowel prep. See instructions provided by the office 2 tablet 12/30/2024 diclofenac (VOLTAREN) 1 % topical gel Apply 2 g topically 2 (two) times a day. 60 g 1 01/20/2025 polyethylene glycol (Golytely) 236-22.74-6.74 -5.86 gram solution Take 4L by mouth once for one dose. May substitue any PEG. Starting at 6PM the night before your procedure drink 1 8oz glasses at your own pace until you complete half of the gallon. Finish 2nd half of the gallon 5 hours before your procedure. 4000 mL 12/30/2024 documented as of this encounter Discharge Disposition Disposition Code Departure Means Destination Home or Self Care documented in this encounter Plan of Treatment Upcoming Encounters Date Type Department Care Team (Late st Contact Info) Description 07/27/2025 1:30 PM EST [place] [facility] [place] [address] [place] [address] Rodrigo Moran MD [address] [place] [address] 10/14/2025 4:00 PM EST Office Visit Adult [facility] [address] [facility] [place] [phone] Rodrigo Moran MD [address] [facility] [place] [address] documented as of this encounter Procedures Procedure Name Priority Date/Time Associated Diagnosis Comments MR KNEE WO CONTRAST LEFT Routine 01/30/2025 11:32 AM EDT Osteoarthritis of left knee, unspecified osteoarthritis type Chronic pain of left knee documented in this encounter Results * MR Knee wo Contrast Left (01/30/2025 11:32 AM EDT) Anatomical Region Laterality Modality Lower Extremities, Knee Left Magnetic Resonance 01/30/2025 4:52 PM EDT Impressions 01/30/2025 4:56 PM EDT 1. ??Mild cartilage irregularity along the lateral tibial plateau. 2. ??Trace edema in the suprapatellar fat pad suggesting mild fat pad impingement. -------- FINAL REPORT -------- Dictated By: Ankur Camilo Dictated Date: 01/30/2025 16:52 ET Assigned Physician: Ankur Camilo Reviewed and Electronically Signed By: Ankur Camilo Signed Date: 01/30/2025 16:56 ET Workstation ID: [id number] Transcribed By: Self Edit Transcribed Date: 01/30/2025 16:52 ET Narrative 01/30/2025 4:56 PM EDT PROCEDURE: MRI of the left knee without contrast. HISTORY: chronic left knee pain. COMPARISON: Radiographs dated 10/05/2024. TECHNIQUE: Multiplanar multisequence MRI of the left knee without intravenous contrast administration. FINDINGS: MENISCI: Medial: Normal. Lateral: Normal. CRUCIATE LIGAMENTS: Anterior and posterior cruciate ligaments are normal. COLLATERAL LIGAMENTS: The medial collateral ligament and lateral collateral ligamentous complex are normal. ARTICULAR CARTILAGE: Lateral compartment: Mild cartilage irregularity along the tibial plateau. Medial compartment: Normal. Patellofemoral compartment: Normal. OTHER: Trace edema in the subcutaneous fat pad. ??Trace Melendez cyst. ??Small quadriceps insertion enthesophytes. Procedure Note Ankur Camilo MD - 01/30/2025 PROCEDURE: MRI of the left knee without contrast. HISTORY: chronic left knee pain. COMPARISON: Radiographs dated 10/05/2024. TECHNIQUE: Multiplanar multisequence MRI of the left knee withoutintravenous contrast administration. FINDINGS: MENISCI: Medial: Normal. Lateral: Normal. CRUCIATE LIGAMENTS: Anterior and posterior cruciate ligaments arenormal. COLLATERAL LIGAMENTS: The medial collateral ligament and lateralcollateral ligamentous complex are normal. ARTICULAR CARTILAGE: Lateral compartment: Mild cartilage irregularity along the tibialplateau. Medial compartment: Normal. Patellofemoral compartment: Normal. OTHER: Trace edema in the subcutaneous fat pad. Trace Melendez cyst. Smallquadriceps insertion enthesophytes. IMPRESSION: 1. Mild cartilage irregularity along the lateral tibial plateau. 2. Trace edema in the suprapatellar fat pad suggesting mild fat padimpingement. -------- FINAL REPORT -------- Dictated By: Ankur Camilo Dictated Date: 01/30/2025 16:52 ET Assigned Physician: Ankur Camilo Reviewed and Electronically Signed By: Ankur Camilo Signed Date: 01/30/2025 16:56 ET Workstation ID: [id number] Transcribed By: Self Edit Transcribed Date: 01/30/2025 16:52 ET Rodrigo Moran MD IMG MRI PROCEDURES Final Re sult documented in this encounter Visit Diagnoses Diagnosis Osteoarthritis of left knee, unspecified osteoarthritis type Chronic pain of left knee documented in this encounter Additional Health Concerns Assessment Noted Time PHQ-9 Depression Total Score: 5 10/05/19 25 2:00 PM EST documented as of this encounter Care Teams Tie Cutter Relationship Specialty Start Date End Date Rodrigo Moran MD [address] [place] [address] PCP - General 09/17/22 documented as of this encounter
== END 2025-02-02 14:54 | disposition home or self-care (01) ==
LOC: HO.HWS 14:20
PROVIDERS: Visit Provider Obstetrics & Gynecology
DX: Z01.419 Encounter for gynecological examination (general) (routine) without abnormal findings (principal)
CPT/HCPCS: 99396; 99459

== ENCOUNTER 2025-03-25 15:50 | Outpatient (REF) | payer OTHER, SELFPAY ==
--- OUTSIDE RECORDS SUMMARY | 2025-03-25 15:53 | XMS_ITS | Clinical Summary ---
Author Organization [facility] Address [address] [place] [address] Phone Care Team Providers Care Student Ambassador Name Role Phone Rodrigo Moran MD Primary Care Provider [phone] Allergies Active Allergy Reactions Criticality Noted Date Comments Other Runny nose 12/07/2022 Seasonal allergies Penicillins Rash 12/07/2022 Medications polyethylene glycol (Golytely) 236-22.74-6.74 -5.86 gram solution Take 4L by mouth once for one dose. May substitue any PEG. Starting at 6PM the night before your procedure drink 1 8oz glasses at your own pace until you complete half of the gallon. Finish 2nd half of the gallon 5 hours before your procedure. 4000 mL 5 Active Additional Information Patient not taking.Reported on 01/20/2025 bisacodyL (DULCOLAX) 5 mg EC tablet Take 2 tablets by mouth right before beginning bowel prep. See instructions provided by the office 2 tablet 5 Active Additional Information Patient not taking.Reported on 01/20/2025 diclofenac (VOLTAREN) 1 % topical gel Apply 2 g topically 2 (two) times a day. 60 g 1 5 Active diclofenac (VOLTAREN) 50 mg EC tablet Take 1 tablet (50 mg total) by mouth 2 (two) times a day if needed (pain). Do not crush, chew, or split. 28 tablet 1 5 Active Active Problems Problem Noted Date Diagnosed Date Osteoarthritis of left knee 01/20/2025 Mild aortic regurgitation 06/24/2023 Overview (06/25/2024): Last [...] Encounters Date Type Department Care Team Description 03/23/2025 10:00 AM EDT Evaluation Outpatient [address] [phone] Balta Lovett PT Osteoarthritis of left knee, unspecified osteoarthritis type (Primary Dx); Left knee pain, unspecified chronicity 03/05/2025 Telephone Adult [address] [phone] Rodrigo Moran MD Knee Pain 01/30/2025 10:53 AM EDT - 01/30/2025 11:59 PM EDT Hospital Encounter [facility] MRI [address] [place] [address] Osteoarthritis of left knee, unspecified osteoarthritis type; Chronic pain of left knee Discharge Disposition: Home or Self Care 01/20/2025 12:30 PM EDT Office Visit Adult [address] [phone] Rodrigo Moran MD Osteoarthritis of left knee, unspecified osteoarthritis type (Primary Dx); Chronic pain of left knee; Hypercholesterolemia 01/19/2025 Telephone Adult [address] [phone] Rodrigo Moran MD Knee Pain from Last 3 Months Immunizations Name Administration [...] on file Sexual Orientation Not on file Obstetrics History Last Filed Vital Signs Vital Sign Reading Time Taken Comments Blood Pressure 110/70 01/20/2025 12:23 PM EDT Pulse 60 01/20/2025 12:23 PM EDT Temperature 35.8 C (96.4 F) 01/20/2025 12:23 PM EDT Respiratory Rate 20 01/20/2025 12:23 PM EDT Oxygen Saturation 98% 10/05/2024 1:38 PM EST Inhaled Oxygen Concentration - - Weight 70.3 kg (155 lb) 01/20/2025 12:23 PM EDT Height 154.9 cm (5' 1 ) 01/20/2025 12:23 PM EDT Body Mass Index 29.29 01/20/2025 12:23 PM EDT Plan of Treatment Upcoming Encounters Date Type Department Care Team (Late st Contact Info) Description 03/30/2025 7:30 AM EDT Treatment Outpatient [address] [phone] Balta Lovett, PT [address] [place] [address] 04/01/2025 2:00 PM EDT Treatment Outpatient [address] [phone] Bernie Lopez, ISAMAR 04/05/2025 11:30 AM EDT Treatment Outpatient [address] [phone] Bernie Lopez, ISAMAR 04/07/2025 10:00 AM EDT Treatment Outpatient Rehabilitation - [address] [phone] Bernie Lopez, LAP MACHINE OPERATOR 04/13/2025 8:30 AM EDT Treatment Outpatient Rehabilitation [address] [phone] Balta Lovett, PT [address] [place] [address] 04/15/2025 10:00 AM EDT Treatment Outpatient [address] [phone] Bernie Lopez, LAP MACHINE OPERATOR 04/27/2025 8:30 AM EDT Treatment Outpatient [address] [phone] Balta Lovett, PT [address] [place] [address] 04/30/2025 8:30 AM EDT Treatment Outpatient [address] [phone] Balta Lovett, PT [address] [place] [address] 07/27/2025 1:30 PM EST Office Visit Adult Medicine [address] [phone] Rodrigo Moran MD [address] [place] [address] 10/14/2025 4:00 PM EST Office Visit Adult Medicine [address] [phone] Rodrigo Moran MD [address] [place], [place] Health Maintenance Due Date Last Done Comments Breast Cancer Screening 1970 Cervical Cancer Screening: Pap Smear 08/26/2025 Postponed from 1992 (Patient Refused) Pneumococcal Vaccine: 50+ Years (1 of 1 - PCV) 08/26/2025 Postponed from 2021 (Patient Refused) Social Influencers of Health Screening 01/20/2026 01/20/2025 Cholesterol Screening (Lipid Panel) 10/05/2029 10/05/2024, 01/03/2023 DTaP,Tdap,and Td Vaccines (2 - Td or Tdap) 04/10/2033 04/10/2023 Colorectal Cancer Screening: Colonoscopy 01/13/2035 01/13/2025 Depression Screening Completed 10/05/2024, 11/05/2023 HIV Screening Completed 10/05/2024 Hepatitis C Screening Completed 10/05/2024 COVID-19 Vaccine Discontinued HIB Vaccines Aged Out No longer eligi ble based on patient's age to complete this topic HPV Vaccines Aged Out No longer eligi ble based on patient's age to complete this topic Hepatitis A Vaccines Aged Out No long er eligible based on patient's age to complete this topic Hepatitis B Vaccines Discontinued IPV Vaccines Aged Out No longer eligi ble based on patient's age to complete this topic Influenza Vaccine Discontinued MMR Vaccines Aged Out No longer eligi ble based on patient's age to complete this topic Meningococcal ACWY Vaccine Aged Out N o longer eligible based on patient's age to complete this topic Meningococcal B Vaccine Aged Out No l onger eligible based on patient's age to complete this topic RSV Immunization Patients Under 20 months Aged Out No longer eligible b ased on patient's age to complete this topic Varicella Vaccines Aged Out No longer eligible based on patient's age to complete this topic Zoster Vaccines Discontinued Goals Goal Patient Goal Type Associated Problems Recent Progress Patient-Stated? Author no pain General Yes Balta Lovett, PT PT STG x 8 visits from [facility] 03/23/25 General No Balta Lovett, PT Note: [x] = goal MET [] = goal NOT MET [] Pt will report a 2/10 pain level decrease, [] Pt will increase hip IR strength to 4-/5 L [] Pt will present with hip abd strength of 4/5 or higher, [] Pt will improve hip add strength to 4/5 or higher, [] Pt will be able to perform sit to stand without UE support, [] Pt will improve VMO recruitment from poor to fair PT LTG x 15 visits from [facility] 03/23/25 Balta Jon, PT Note: [x] = goal MET [] = goal NOT MET [] Pt will be able to consistently perform car transfers without requiring UE support, [] Pt will be able to consistently perform sit<>supine without requiring UE support, [] Pt will wake less than 3/wk due to knee pain, [] Pt will be able to squat to floor to retrieve item from floor, [] Pt will be able to consistently negotiate stairs reciprocally [] Pt will be able negotiate ladders at work prn Procedures Procedure Name Priority Date/Time Associated Diagnosis Comments MR KNEE WO CONTRAST LEFT Routine 01/30/2025 11:32 AM EDT Osteoarthritis of left knee, unspecified osteoarthritis type Chronic pain of left knee EXTERNAL COLONOSCOPY REPORT Routine 01/13/2025 10:38 AM EDT HEPATITIS C ANTIBODY Routine 10/05/2024 3:59 PM EST Annual physical exam HIV 1, 2 ANTIBODY, P24 ANTIGEN WITH REFLEX TO DIFFERENTIATION Routine 10/05/2024 3:59 PM EST Annual physical exam LIPID PANEL WITH REFLEX TO DIRECT LDL Routine 10/05/2024 3:59 PM EST Encounter for screening for cardiovascular disorders HM DEPRESSION SCREENING Routine 11/05/2023 from Last 3 Months or Most Recently Relevant to Health Maintenance Results * MR Knee wo Contrast Left (01/30/2025 11:32 AM EDT) Anatomical Region Laterality Modality Lower Extremities, Knee Left Magnetic Resonance 01/30/2025 4:52 PM EDT Impressions 01/30/2025 4:56 PM EDT 1. Mild cartilage irregularity along the lateral tibial plateau. 2. Trace edema in the suprapatellar fat pad suggesting mild fat pad impingement. -------- FINAL REPORT -------- Dictated By: Ankur Camilo Dictated Date: 01/30/2025 16:52 ET Assigned Physician: Ankur Camilo Reviewed and Electronically Signed By: Ankur Camilo Signed Date: 01/30/2025 16:56 ET Workstation ID: [id number] Transcribed By: Self Edit Transcribed Date: 01/30/2025 [...] the subcutaneous fat pad. Trace Melendez cyst. Small quadriceps insertion enthesophytes. Procedure Note Ankur Camilo [...] Signed Date: 01/30/2025 16:56 ET Workstation ID: [id number] Transcribed By: Self Edit Transcribed Date: 01/30/2025 16:52 ET Rodrigo Moran MD IMG MRI PROCEDURES Final Re sult * External Colonoscopy Report (01/13/2025 10:38 AM EDT) Anatomical Region Laterality Modality Endoscopy Historical Provider GI~PROCEDURE ORDERABLES F inal Result * Hepatitis C antibody (10/05/2024 3:59 PM EST) [facility] Hepatitis C Antibody Negative Negative LAB CHEMISTRY METHOD 10/05/2024 7:56 PM EST [facility] Blood Venous blood specimen / Unknown Venipuncture / Unknown 10/05/2024 3:59 PM EST 10/05/2024 3:59 PM EST Nataly Melendez 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 [employer] LAB BLOOD ORDERABLES Final R esult [facility] [address] [place] [address], * HIV 1,2 antibody, p24 antigen with reflex to differentiation (10/05/2024 3:59 PM EST) [facility] HIV Combo AB/AG Negative Negative LAB CHEMISTRY METHOD 10/05/2024 7:56 PM EST [facility] Blood Venous blood specimen / Unknown Venipuncture / Unknown 10/05/2024 3:59 PM EST 10/05/2024 3:59 PM EST Narrative [facility] - 10/05/2024 7:56 PM EST This assay is a 4th generation assay allowing for earlier detection of HIV infection by detecting the presence of the HIV-1 p24 antigen as well as the traditional antibodies to HIV type 1 (including group O) and type 2. Use of a 4th generation assay is the current CDC recommendation for HIV screening. Nataly Melendez NP LAB BLOOD ORDERABLES Final R esult [facility] [address] [place] [address], [place] [phone] * (ABNORMAL) Lipid panel with reflex to direct LDL (10/05/2024 3:59 PM EST) Cholesterol 196 0 - 200 mg/dL LAB CHEMISTRY METHOD 10/05/2024 7:07 PM EST [facility] Triglycerides 90 0 - 150 mg/dL LAB CHEMISTRY METHOD 10/05/2024 7:07 PM [facility] HDL 71 >=40 mg/dL LAB CHEMISTRY METHOD 10/05/2024 7:07 PM EST [facility] LDL Calculated 107(H) 0 - 100 mg/dL LAB CHEMISTRY METHOD 10/05/2024 7:07 PM EST [facility] VLDL Cholesterol Isidro 18 mg/dL LAB CHEMISTRY METHOD 10/05/2024 7:07 PM [facility] Non HDL Chol. (LDL+VLDL) 125 <145 mg/dL LAB CHEMISTRY METHOD 10/05/2024 7:07 PM EST [facility] Chol/HDL Ratio 2.8 0.0 - 4.4 LAB CHEMISTRY METHOD 10/05/2024 7:07 PM [facility] Blood Venous blood specimen / Unknown Venipuncture / Unknown 10/05/2024 3:59 PM EST 10/05/2024 3:59 PM EST Nataly Melendez NP LAB BLOOD ORDERABLES Final R esult [facility] [address] [place] [address], [place] [phone] * Depression Screening (11/05/2023) Depression Screening abstracted us Historical Provider MD HEALTH MAINTENANCE Final Result from Last 3 Months or Most Recently Relevant to Health Maintenance Insurance [facility] [employer] Care Teams Student Ambassador Relationship Specialty Start Date End Date Rodrigo Moran MD [address] [place] [address] PCP - General 09/17/22
--- OUTSIDE RECORDS SUMMARY | 2025-03-25 15:53 | XMS_ITS ---
Author Name [facility] Organization Unknown Care Team Organization Name Specialty Phone Email Start Date End Da te [facility] KENNEY MASTERS Primary Care [email or web address] 02/01/2023 4 [facility] Booker Miramontes Primary Care 07/03/2022 04/13/20 2 4
== END 2025-03-25 15:51 | disposition home or self-care (01) ==
LOC: HO.MAMMO 15:50
PROVIDERS: PCP Internal Medicine; Visit Provider Obstetrics & Gynecology
DX: Z12.31 Encounter for screening mammogram for malignant neoplasm of breast (principal)
CPT/HCPCS: 77063; 77067

== ENCOUNTER → 2025-03-25 16:00 | Outpatient (BNV) | payer OTHER, SELFPAY | PROVIDERS: PCP Internal Medicine; Visit Provider Internal Medicine | DX: Z12.31 Encounter for screening mammogram for malignant neoplasm of breast (principal) | CPT/HCPCS: 77063; 77067 ==